=== PATIENT | female | born 1965 | race Two or more races ===

== ENCOUNTER 2020-10-08 18:22 | Emergency (ER) | payer OTHER ==
[~2020-10-08] VITALS: Ht 157.5 cm; Wt 63.5 kg
[2020-10-08] MEDS ORDERED: CIPRO500 MG PO (20:25)
== END 2020-10-08 20:34 | disposition home or self-care (01) ==
LOC: ER 18:22
DX: S81.021A Laceration with foreign body, right knee, initial encounter (principal); W18.09XA Striking against other object with subsequent fall, initial encounter; Y93.89 Activity, other specified; Y92.838 Other recreation area as the place of occurrence of the external cause; Y99.8 Other external cause status